=== PATIENT | male | born 1955 | race Two or more races ===

== ENCOUNTER 2018-07-30 13:07 | Outpatient (CLI) | payer OTHER ==
[~2018-07-30] VITALS: Ht 170.2 cm; Wt 91.6 kg
--- NOTE | 2018-07-30 14:06 | GI Initial Consult Note ---
History of Present Illness General Date patient seen: Jul 30, 2018 Time patient seen: 13:59 Referring physician: HMO Reason for Consultation: GIST Present Illness HPI 62 year old male patient with history of Ulcerative colitis diagnosed greater than 20 years ago, s/p partial colectomy presents today with symptoms including abdominal pain and bloating. Noted weight loss of over 15 lbs in the past 2 months. Recent evaluations include a colonoscopy on 01/10/18 and EGD performed . He presents today for endoscopic ultrasound evaluation to r/o GIST. Med list reviewed/reconciled: Yes Patient History History Provided By: Patient, Medical Record PMH Narrative [place] Esophagus GERD Gastritis Duodenal Nodule Duodenal Diverticulum UC HTN Thyroid Disease HLD Arthritis BPH Obesity Past Surgical History: Back Surgery Leg Surgery Twice Colon Resection Pertinent Family History: none Social History: Denies: smoking, alcohol use, drug use, other Review of Systems All Other Systems: negative except mentioned in HPI Physical Exam T 97.5 BP 124/76 P 72 99 RA Sp02 EP Interpretation: reviewed, normal General Appearance: well appearing, no apparent distress, alert Head: normocephalic EENT: PERRL/EOMI, normal ENT inspection Neck: supple Respiratory: normal breath sounds, no respiratory distress Cardiovascular: normal rate Gastrointestinal: normal inspection, non tender, soft, normal bowel sounds, non -distended Rectal: deferred Genitourinary: deferred Musculoskeletal: normal inspection, back normal Neurologic: normal inspection, alert, oriented x3, responsive Psychiatric: normal inspection, judgement/insight normal, memory normal Skin: normal inspection, normal color, no rash, warm/dry, palpation normal, well hydrated Lymphatic: normal inspection, no adenopathy GI: Plan Problems: (1) GIST (gastrointestinal stroma tumor), malignant, colon (2) Ulcerative colitis (3) Weight loss (4) H/O partial resection of colon Plan EGD/EUS to be scheduled pending prior authorization, will contact patient. - NPO @ NE day prior procedure explained. refill PPI will follow with additional recs post procedure Seen with Dr. Murphy. Thank you for this patient referral. The patient was seen and examined at bedside and all new and available data was reviewed in the patients chart. I agree with the above findings, impression and plan. (Patient seen earlier today. Signature stamp does not reflect patient encounter time.). - MD Ashley [facility]eroSelect [facility]oi [employer] Jul 30, 2018 14:06
[2018-07-30 14:22] VITALS: BP 124/76
[2018-07-31] MEDS ORDERED: VITAMIN D250000 UNI1 ORAL (15:03)
[2018-07-31] MEDS ORDERED: FUROSEMIDE20 M1 ORAL (15:03)
[2018-07-31] MEDS ORDERED: HYDROCORTISONE5 MG PO (15:03)
[2018-07-31] MEDS ORDERED: CHOLESTYRAMINE L4 GM ORAL (15:03)
[2018-07-31] MEDS ORDERED: DOCUSATE SODIU100 MG ORAL (15:03)
[2018-07-31] MEDS ORDERED: TAMSULOSIN HCL0.4 MG ORAL (15:03)
[2018-07-31] MEDS ORDERED: PROCTOZONE-HC30 GM RC (15:03)
[2018-07-31] MEDS ORDERED: IMODIUM2 MG ORAL (15:03)
[2018-07-31] MEDS ORDERED: APRISO0.375 GM PO (15:03)
[2018-07-31] MEDS ORDERED: ZYRTEC10 MG ORAL (15:03)
[2018-07-31] MEDS ORDERED: REGLAN10 M1 ORAL (15:03)
[2018-07-31] MEDS ORDERED: DICLOFENAC SODI50 MG ORAL (15:03)
[2018-07-31] MEDS ORDERED: FERROUS SULFAT325 MG ORAL (15:03)
[2018-07-31] MEDS ORDERED: PANTOPRAZOLE SO40 MG ORAL (15:03)
[2018-07-31] MEDS ORDERED: SERTRALINE HCL50 MG ORAL (15:03)
[2018-07-31] MEDS ORDERED: PYRIDOXINE HCL50 MG ORAL (15:03)
[2018-07-31] MEDS ORDERED: FOLIC ACID1 MG ORAL (15:03)
[2018-07-31] MEDS ORDERED: FAMOTIDINE20 MG ORAL (15:03)
[2018-07-31] MEDS ORDERED: SYNTHROID50 MCG ORAL (15:03)
[2018-07-31] MEDS ORDERED: AMLODIPINE BESYL5 MG ORAL (15:03)
[2018-07-31] MEDS ORDERED: DICLOFONO2.5 GM TP (15:03)
[2018-07-31] MEDS ORDERED: GEMFIBROZIL600 MG ORAL (15:03)
[2018-07-31] MEDS ORDERED: NORCO 5-325 TA1 EACH ORAL (15:03)
== END 2018-07-30 13:37 | disposition home or self-care (01) ==
LOC: PAN 13:07
DX: K51.90 Ulcerative colitis, unspecified, without complications (principal); R14.0 Abdominal distension (gaseous); R63.4 Abnormal weight loss; Z90.49 Acquired absence of other specified parts of digestive tract; K21.9 Gastro-esophageal reflux disease without esophagitis; K22.70 Barrett's esophagus without dysplasia; I10 Essential (primary) hypertension; M19.90 Unspecified osteoarthritis, unspecified site
CPT/HCPCS: 99202

== ENCOUNTER 2018-09-21 06:50 | Day surgery (SDC) | payer OTHER ==
[2018-09-21] VITALS (9 sets, daily range): BP systolic 105–144; BP diastolic 65–86
[~2018-09-21] VITALS: Ht 170.2 cm; Wt 92.1 kg
[~2018-09-21 06:50] MED LIST: AMLODIPINE BESYL5 MG ORAL; APRISO0.375 GM PO; CHOLESTYRAMINE L4 GM ORAL; DICLOFENAC SODI50 MG ORAL; DICLOFONO2.5 GM TP; DOCUSATE SODIU100 MG ORAL; FAMOTIDINE20 MG ORAL; FERROUS SULFAT325 MG ORAL; FOLIC ACID1 MG ORAL; FUROSEMIDE20 M1 ORAL; GEMFIBROZIL600 MG ORAL; HYDROCORTISONE5 MG PO; IMODIUM2 MG ORAL; NORCO 5-325 TA1 EACH ORAL; PANTOPRAZOLE SO40 MG ORAL; PROCTOZONE-HC30 GM RC; PYRIDOXINE HCL50 MG ORAL; REGLAN10 M1 ORAL; SERTRALINE HCL50 MG ORAL; SYNTHROID50 MCG ORAL; TAMSULOSIN HCL0.4 MG ORAL; VITAMIN D250000 UNI1 ORAL; ZYRTEC10 MG ORAL
[2018-09-21] MEDS ORDERED: NORCO 10-325 T1 EACH ORAL (07:41)
[2018-09-21] MEDS ORDERED: Propofol 200mg/20ml IV ONE (08:30)
[2018-09-21] MEDS ORDERED: Lidocaine 1% MPF 10mg/ml 5ml ONE (08:30)
[2018-09-21] MEDS ORDERED: LR 1000ml ONE (08:30)
--- NOTE | 2018-09-21 08:33 | Short Stay Surgery H&P ---
History of Present Illness History of Present Illness Chief Complaint see recent office note HPI Boo Kelsey is a 63 year old male who was admitted on for Duodenal Nodule Patient History Allergies: Coded Allergies: No Known Allergies (Unverified , 09/21/18) Medication History Scheduled Amlodipine Besylate* (Amlodipine Besylate*), 5 MG ORAL DAILY, (Reported) Cetirizine Hcl* (Zyrtec*), 10 MG ORAL DAILY, (Reported) Cholestyramine/Aspartame (Cholestyramine Light Packet), 4 GM ORAL DAILY, ( Reported) Diclofenac Sod* (Voltaren*), 50 MG ORAL BID, (Reported) Diclofenac Sodium (Diclofono), 2.5 GM TP BID, (Reported) Docusate Sodium* (Docusate Sodium*), 100 MG ORAL TWICE A DAY, (Reported) Famotidine (Famotidine), 20 MG ORAL DAILY, (Reported) Ferrous Sulfate* (Ferrous Sulfate*), 325 MG ORAL DAILY, (Reported) Folic Acid* (Folic Acid*), 1 MG ORAL DAILY, (Reported) Furosemide* (Lasix*), 20 MG ORAL DAILY, (Reported) Gemfibrozil (Gemfibrozil*), 600 MG ORAL BID, (Reported) Hydrocortisone (Proctozone-Hc), 30 GM RC BID, (Reported) Hydrocortisone (Hydrocortisone), 5 MG PO DAILY, (Reported) Levothyroxine Sodium (Synthroid), 50 MCG ORAL DAILY, (Reported) Loperamide HCl (Loperamide), 2 MG ORAL Q4H, (Reported) Metoclopramide Hcl* (Reglan*), 10 MG ORAL THREE TIMES A DAY, (Reported) Pantoprazole* (Pantoprazole*), 40 MG ORAL DAILY, (Reported) Pyridoxine Hcl* (Vitamin B-6*), 50 MG ORAL DAILY, (Reported) Sertraline Hcl* (Zoloft*), 50 MG ORAL DAILY, (Reported) Tamsulosin Hcl (Tamsulosin Hcl*), 0.4 MG ORAL BEDTIME, (Reported) Scheduled PRN Hydrocodone Bit/Acetaminophen 10-325* ([place] 10-325*), 1 TAB ORAL Q6H PRN for For Pain, (Reported) Physical Exam Vital Signs Last Vital Signs Date Time Temp Pulse Resp B/P (MAP) Pulse Ox O2 Delivery O2 Flow Rate FiO2 09/21/18 07:26 Room Air 09/21/18 07:25 97.5 63 18 105/65 99 Plan Attestation Are the patient's medical conditions optimized for surgery? Alexander Murphy MD Sep 21, 2018 08:33
--- NOTE | 2018-09-21 08:33 | Pre-Procedure Note/Attestation ---
Pre-Procedure Note/Attestation Complete Prior to Procedure Planned Procedure: not applicable Procedure Narrative: egd/eus Indications for Procedure Pre-Operative Diagnosis: gastric submucosal lesion Attestation I attest that I discussed the nature of the procedure; its benefits; risks and complications; and alternatives (and the risks and benefits of such alternatives ), prior to the procedure, with the patient (or the patient's legal retail sales representative). I attest that, if there was a reasonable possibility of needing a blood transfusion, the patient (or the patient's legal retail sales representative) was given the [facility] standardized written summary, pursuant to the Simba Marky Blood Safety Act ([place] Health and Safety Code # 1645, as amended). I attest that I re-evaluated the patient just prior to the surgery and that there has been no change in the patient's H&P, except as documented below: Alexander Murphy MD Sep 21, 2018 08:33
--- NOTE | 2018-09-21 09:18 | Endoscopy Procedure Note ---
Endoscopy Procedure Note General Indication for Procedure: doudenal sub mucosal lesion Procedures Performed: EGD Operative Findings/Diagnosis: same Specimen: yes Pt Tolerated Procedure Well: Yes Estimated Blood Loss: none Anesthesia Anesthesiologist: dolly Anesthesia: MAC Inserted Devices Implant(s) used?: No GI Core Measures 50 yrs or older w/o bx or poly: Not Applicable 10yrs. F/U not recommended: Not Applicable Alexander Murphy MD Sep 21, 2018 09:18
--- NOTE | 2018-09-21 09:35 | Anethesia Preoperative Eval ---
Anesthesia Pre-op PMH/ROS General Date of Evaluation: Sep 21, 2018 Time of Evaluation: 08:38 Anesthesiologist: Sharmin Barajas CRNA ASA Score: ASA 3 Mallampati Score Class I : Soft palate, uvula, fauces, pillars visible Class II: Soft palate, uvula, fauces visible Class III: Soft palate, base of uvula visible Class IV: Only hard plate visible Mallampati Classification: Class II Surgeon: Jeffrey Diagnosis: Duodenol nodule Surgical Procedure: EGD, EUS Anesthesia History: none Allergies: Coded Allergies: No Known Allergies (Unverified , 09/21/18) Patient NPO?: Yes NPO Date: Sep 21, 2018 NPO Time: 00:00 Past Medical History Cardiovascular: Reports: HTN; Denies: CAD, ME, valve dz, arrhythmia, other Pulmonary: Denies: asthma, COPD, JOVITA, other Gastrointestinal/Genitourinary: Reports: GERD, other - Ulcerative colitis, Hiatal hernia s/p colectomy for colon CA; Denies: CRI, ESRD Neurologic/Psychiatric: Denies: dementia, CVA, depression/anxiety, TIA, other Endocrine: Denies: DM, hypothyroidism, steroids, other HEENT: Denies: cataract (L), cataract (R), glaucoma, MASHPEE (L), MASHPEE (R), other Hematology/Immune: Denies: anemia, DVT, bleeding disorder, other Musculoskeletal/Integumentary: Reports: other - lower back pain; Denies: OA, RA, DJD, DDD, edema Other: obesity PMH Narrative: as above PSxH Narrative: lumbar surgery, colectomy Anesthesia Pre-op Phys. Exam Physician Exam Last Vital Signs Date Time Temp Pulse Resp B/P (MAP) Pulse Ox O2 Delivery O2 Flow Rate FiO2 09/21/18 07:26 Room Air 09/21/18 07:25 97.5 63 18 105/65 99 Constitutional: NAD Neurologic: CN 2-12 intact Cardiovascular: RRR Respiratory: CTA Gastrointestinal: S/NT/ND Airway Exam Mallampati Score: Class II MO: full Neck: no limitations TMD: 3 FB ROM: full Teeth: intact Dentures: no upper, no lower Anesthesia Pre-op A/P Labs reveiwed Studies Pre-op Studies: EKG - SB Risk Assessment & Plan Assessment: ASA 3 ok to proceed Plan: MAC Status Change Before Surgery: No Pre-Antibiotics Given Within 1 Hr of Incision: No Sharmin Barajas CRNA Sep 21, 2018 09:35
--- NOTE | 2018-09-21 09:36 | Immediate Post-Op Evaluation ---
Immediate Post-Op Evalulation Immediate Post-Op Evalulation Procedure: EGD, attempted EUS Date of Evaluation: Sep 21, 2018 Time of Evaluation: 09:25 IV Fluids: LR 200 ml Blood Pressure Systolic: 127 Blood Pressure Diastolic: 78 Pulse Rate: 78 Respiratory Rate: 20 O2 Sat by Pulse Oximetry: 99 Temperature (Fahrenheit): 97.7 Pain Score (1-10): 0 Nausea: No Vomiting: No Complications none Patient Status: awake, reacts, patent Hydration Status: adequate Given Within 1 Hr of Incision: Sharmin Elliott CRNA Sep 21, 2018 09:36
--- NOTE | 2018-09-21 12:00 | Procedure Note ---
DATE OF PROCEDURE: 09/21/2018 SURGEON: Alexander Murphy M.D. PROCEDURE: Upper endoscopy with biopsy. ANESTHESIA: Per Sharmin CALDWELL. INSTRUMENT: Olympus adult flexible upper endoscope and EUS scope. INDICATION: Duodenal submucosal lesion. REASON FOR PROCEDURE: The procedure, risks, benefits, and possible consequences, including hemorrhage, aspiration, perforation and infection, and alternative treatments, were explained to the patient/legal guardian by Dr. Alexander Murphy and the patient/legal guardian understood and accepted these risks. PROCEDURE IN DETAIL: After informed consent was obtained and the patient was adequately sedated, Olympus upper endoscope was advanced from the mouth into the second portion of the duodenum and retroflexion was performed in the stomach. The patient had evidence of 5-cm hiatal hernia from 35 to 40 cm from the incisors. There was evidence of a stricture right at the opening of the GE junction. The upper scope was easily passed, but the EUS scope did not pass through this stricture. The patient did not have any obvious esophagitis at this time. In the stomach, there was severe diffuse atrophic gastritis, almost there was no fold was seen and just flat lining of the gastric mucosa. The scope was advanced into the duodenal bulb and second portion of duodenum. In the duodenal bulb at about 3 o'clock position, there was a small lesion. This lesion measured roughly about 6 mm in size. I am not sure if this is a submucosal lesion versus just nodule. So, then at this time, the upper endoscope was retrieved and EUS scope was introduced. We tried to pass the EUS scope through the GE junction. Unfortunately was extremely resistant because of the stricture. Unfortunately, we did not have the consent for dilation, so we could not dilate and passed the scope through. After multiple attempts and we felt that the patient was becoming uncomfortable and risk of perforation, we decided not to pursue with passing the EUS scope through this stricture. At this time, the EUS scope was retrieved off, Olympus upper endoscope was reintroduced and we did multiple biopsy from the duodenal lesion. The patient tolerated the procedure very well without any complication. SUMMARY OF FINDINGS: 1. A 5-cm hiatal hernia. 2. Distal esophageal stricture at the GE junction. 3. Severe atrophic gastritis. 4. A duodenal nodule measured roughly about 6 mm at 3 o'clock position in the duodenal bulb. 5. Unable to pass the EUS scope through the stricture at the GE junction. 6. Status post multiple biopsy of the duodenal nodule. RECOMMENDATIONS: Follow up biopsy results and treat accordingly. The patient might benefit if this nodule becomes something that needs further evaluation. We recommend repeat endoscopy with the consent for dilation. So, we can dilate the GE junction and get through with EUS scope, but at this time, we recommend just following biopsy results and making decisions based on that. The patient has also been having complaint of weight loss, history of ulcerative colitis. We recommend workup for PSC with the primary screener and blender. Alexander Murphy M.D. DR: BENNY JOB#: [id number] CC:
--- NOTE | 2018-09-21 12:43 | 48 Hour Post Anesthesia Eval ---
Post Anesthesia Evaluation Procedure: EGD, attempted EUS Date of Evaluation: Sep 21, 2018 Time of Evaluation: 10:40 Blood Pressure Systolic: 134 0: 69 Pulse Rate: 64 Respiratory Rate: 20 Temperature (Fahrenheit): 97.2 O2 Sat by Pulse Oximetry: 98 Nausea: No Vomiting: No Pain Intensity: 0 Hydration Status: adequate Cardiopulmonary Status: stable Mental Status/LOC: patient returned to baseline Follow-up Care/Observations: per GI Post-Anesthesia Complications: none Follow-up care needed: ready to discharge Sharmin Barajas CRNA Sep 21, 2018 12:43
== END 2018-09-21 10:50 | disposition home or self-care (01) ==
LOC: GAS 06:50
DX: K29.80 Duodenitis without bleeding (principal); K29.40 Chronic atrophic gastritis without bleeding; K22.2 Esophageal obstruction; K44.9 Diaphragmatic hernia without obstruction or gangrene; K21.9 Gastro-esophageal reflux disease without esophagitis; I10 Essential (primary) hypertension; K51.90 Ulcerative colitis, unspecified, without complications; Z85.038 Personal history of other malignant neoplasm of large intestine; Z90.49 Acquired absence of other specified parts of digestive tract; M54.9 Dorsalgia, unspecified
CPT/HCPCS: 43239; 93005; J2704; Z7512; 94003; 94150

== ENCOUNTER 2018-10-09 10:17 | Outpatient (CLI) | payer MEDICAID, OTHER ==
[~2018-10-09 10:17] MED LIST changes: +NORCO 10-325 T1 EACH ORAL
[2018-10-09 14:05] VITALS: BP 123/77
--- NOTE | 2018-10-09 15:05 | GI Progress Note ---
Assessment/Plan Problems: (1) Esophageal stricture ICD Codes: K22.2 - Esophageal obstruction SNOMED: 90736421 (2) GIST (gastrointestinal stroma tumor), malignant, colon ICD Codes: C49.A4 - Gastrointestinal stromal tumor of large intestine SNOMED: 04831744, 718145025 (3) Weight loss ICD Codes: R63.4 - Abnormal weight loss SNOMED: 28497417, 730765519 (4) Ulcerative colitis ICD Codes: K51.90 - Ulcerative colitis, unspecified, without complications SNOMED: 05006986 (5) H/O partial resection of colon ICD Codes: Z90.49 - Acquired absence of other specified parts of digestive tract SNOMED: 994915941 Status: stable Status Narrative Discussed with Dr. Murphy Assessment/Plan SUMMARY OF FINDINGS reviewed with patient: 1. A 5-cm hiatal hernia. 2. Distal esophageal stricture at the GE junction. 3. Severe atrophic gastritis. 4. A duodenal nodule measured roughly about 6 mm at 3 o'clock position in the duodenal bulb. 5. Unable to pass the EUS scope through the stricture at the GE junction. 6. Status post multiple biopsy of the duodenal nodule. RECOMMENDATIONS: Diet as tolerated PPI We recommend repeat endoscopy with the consent for dilation. Return to clinic in 2 months The patient was seen and examined at bedside and all new and available data was reviewed in the patients chart. I agree with the above findings, impression and plan. (Patient seen earlier today. Signature stamp does not reflect patient encounter time.). - Alexander Murphy MD Subjective Gastrointestinal/Abdominal: Reports: no symptoms Objective Last 24 Hour Vital Signs Date Time Temp Pulse Resp B/P (MAP) Pulse Ox O2 Delivery O2 Flow Rate FiO2 10/09/18 14:05 98.2 99 123/77 98 General Appearance: WD/WN, no apparent distress, alert Cardiovascular: normal rate Respiratory/Chest: normal breath sounds, no respiratory distress Abdominal Exam: normal bowel sounds, non tender, soft Extremities: normal range of motion, non-tender Tung Ramirez NP Oct 09, 2018 15:05
== END 2018-10-09 10:47 | disposition home or self-care (01) ==
LOC: PAN 10:17
DX: K22.2 Esophageal obstruction (principal); C49.A4 Gastrointestinal stromal tumor of large intestine; R63.4 Abnormal weight loss; K51.90 Ulcerative colitis, unspecified, without complications; Z90.49 Acquired absence of other specified parts of digestive tract; K44.9 Diaphragmatic hernia without obstruction or gangrene; K29.40 Chronic atrophic gastritis without bleeding
CPT/HCPCS: 99212

== ENCOUNTER 2018-12-10 13:00 | Outpatient (CLI) | payer OTHER ==
--- NOTE | 2018-12-10 14:27 | General Progress Note ---
Assessment/Plan Problem List: (1) H/O partial resection of colon ICD Codes: Z90.49 - Acquired absence of other specified parts of digestive tract SNOMED: 876066682 (2) GIST (gastrointestinal stroma tumor), malignant, colon ICD Codes: C49.A4 - Gastrointestinal stromal tumor of large intestine SNOMED: 63570884, 985366374 (3) Weight loss ICD Codes: R63.4 - Abnormal weight loss SNOMED: 10360832, 982822256 (4) Esophageal stricture ICD Codes: K22.2 - Esophageal obstruction SNOMED: 04261777 (5) Ulcerative colitis ICD Codes: K51.90 - Ulcerative colitis, unspecified, without complications SNOMED: 83888124 Assessment/Plan persistent dysphagia needs EGD and dilatation>>> pending authorization refill ppi Subjective ROS Limited/Unobtainable: Yes Allergies: Coded Allergies: No Known Allergies (Unverified , 09/21/18) Objective General Appearance: alert EENT: normal ENT inspection Neck: normal alignment Cardiovascular: normal rate Respiratory/Chest: lungs clear Abdomen: normal bowel sounds, non tender, soft Extremities: non-tender Alexander Murphy MD Dec 10, 2018 14:27
== END 2018-12-10 15:00 | disposition home or self-care (01) ==
LOC: PAN 13:00
DX: K51.90 Ulcerative colitis, unspecified, without complications (principal); K22.2 Esophageal obstruction; R63.4 Abnormal weight loss; C49.A4 Gastrointestinal stromal tumor of large intestine; Z90.49 Acquired absence of other specified parts of digestive tract
CPT/HCPCS: G0463